=== PATIENT | female | born 1990 | race Caucasian/White ===

== ENCOUNTER 2023-03-15 22:04 | Emergency (ER) | payer OTHER ==
[~2023-03-15] VITALS: Ht 167.6 cm; Wt 86.2 kg
[2023-03-15 22:14] VITALS: BP_SYST 127
[2023-03-15] MEDS ORDERED: DECADRON 4 MG TABLET PO ONE (23:00)
[2023-03-15] MEDS ORDERED: cefTRIAXone 1 GM in LIDOCAINE 1%, 20 ML MDV 2.1 ML IM ONE (23:00)
[2023-03-15] MEDS ORDERED: DEC4 PO (23:40)
[2023-03-15] MEDS ORDERED: CLAR-61 PO (23:40)
== END 2023-03-15 23:44 | disposition home or self-care (01) ==
LOC: SED 22:04
DX: J02.9 Acute pharyngitis, unspecified (principal); R13.10 Dysphagia, unspecified; Z88.0 Allergy status to penicillin; Z79.899 Other long term (current) drug therapy
CPT/HCPCS: 99283; 96372; J8540; J0696; J2001

== ENCOUNTER 2023-07-26 22:38 | Emergency (ER) | payer OTHER ==
[~2023-07-26] VITALS: Ht 167.6 cm; Wt 88.5 kg
[~2023-07-26 22:38] MED LIST: CLAR-61 PO; DEC4 PO
[2023-07-26 22:45] VITALS: BP_SYST 140; PULSE 102; RESP 18; TEMP 99.2; O2SAT 97
[2023-07-27] MEDS ORDERED: DOXYCYCLINE HYCLATE 100 MG CAPSULE PO ONE (00:15)
[2023-07-27] MEDS ORDERED: DOXY100T2 PO (00:16)
[2023-07-27 00:42] VITALS: BP_SYST 140; PULSE 102; RESP 18; TEMP 99.2; O2SAT 97
== END 2023-07-27 00:42 | disposition home or self-care (01) ==
LOC: SED 22:38
DX: H66.92 Otitis media, unspecified, left ear (principal); Z88.0 Allergy status to penicillin; Z79.899 Other long term (current) drug therapy
CPT/HCPCS: 99283